=== PATIENT | male | born 1950 | race Native Hawaiian/Other Pacific Islander ===

== ENCOUNTER 2017-06-09 11:11 | Emergency (ER) | payer OTHER ==
[~2017-06-09] VITALS: Ht 175.3 cm; Wt 78.5 kg
[2017-06-09] MEDS ORDERED: ZESTRIL40 MG OR (11:31)
[2017-06-09] MEDS ORDERED: AMLODIPINE BESYLATE PO (11:32)
[2017-06-09] MEDS ORDERED: OXYB5TAB56 PO (11:32)
[2017-06-09] MEDS ORDERED: TAMS0.4C PO (11:32)
[2017-06-09 12:05] LABS: PLATELET COUNT 263 K/uL (142-355)
[2017-06-09 12:12] LABS: POTASSIUM 3.8 mmol/L (3.6-5.2); SODIUM 139 mmol/L (136-145)
== END 2017-06-09 13:13 | disposition home or self-care (01) ==
LOC: ED 11:11
DX: R10.13 Epigastric pain (principal); M54.89 Other dorsalgia
CPT/HCPCS: 36415; 80053; 85027; 86318; 99283